=== PATIENT | male | born 1975 | race Caucasian/White ===

== ENCOUNTER 2018-06-08 05:55 | Inpatient (IN) | payer OTHER ==
[2018-06-07 14:31] VITALS: BMI 43.5
[~2018-06-08 05:55] MED LIST: oxyCODONE HCL 10 MG SUSTAINED ACTING TABLET PO ONE
[2018-06-08] MEDS ORDERED: oxyCODONE HCL 10 MG SUSTAINED ACTING TABLET ONE (06:23)
[2018-06-08] MEDS ORDERED: MIDAZOLAM HCL 2 MG/2 ML SINGLE DOSE VIAL ONE ×5 (07:03→10:11)
[2018-06-08] MEDS ORDERED: BUPIVACAINE HCL/PF 0.5% (5MG/ML) 10 ML VIAL ONE (07:04)
[2018-06-08] MEDS ORDERED: BUPIVACAINE HCL/PF (5 MG/ML) 30 ML VIAL IJ ONE (07:20)
[2018-06-08] MEDS ORDERED: BUPIVACAINE LIPOSOME/PF (EXPAREL) 266 MG/20 ML VIAL ONE (07:20)
[2018-06-08] MEDS ORDERED: LIDOCAINE 1%/EPI 1:100000 (20 ML MULTI DOSE VIAL) ONE (07:21)
[2018-06-08] MEDS ORDERED: THROMBIN (RECOMBINANT) 5,000 UNIT VIAL TP ONE (07:21)
--- NOTE | 2018-06-08 07:52 | HP ---
History & Physical Update - History History: No Change - Physical Physical: No Change - Assessment Assessment: No Change - Plan Plan: No Change
[2018-06-08] MEDS ORDERED: ceFAZolin SODIUM 1 GM VIAL ONE (08:52)
[2018-06-08] MEDS ORDERED: THROMBIN (BOVINE) 5,000 UNIT VIAL TP ONE (10:00)
[2018-06-08] MEDS ORDERED: GELATIN, ABSORBABLE 100 EACH SPONGE TP ONE (10:00)
[2018-06-08] MEDS ORDERED: ONDANSETRON 4 MG/2 ML VIAL ONE (10:17)
[2018-06-08] MEDS ORDERED: KETAMINE HCL 200 MG/20 ML VIAL ONE (10:43)
[2018-06-08] MEDS ORDERED: oxyCODONE HCL 5 MG TABLET PO PRN (11:16)
[2018-06-08] MEDS ORDERED: ONDANSETRON 4 MG/2 ML VIAL IVPUSH PRN (11:16)
[2018-06-08] MEDS ORDERED: ACETAMINOPHEN 1000 MG/100 ML VIAL (NON FORMULARY) IVPB ONE (11:20)
--- NOTE | 2018-06-08 11:27 | OP ---
Operative Note - Note: Operative Date: 06/08/18 Pre-Operative Diagnosis: Lumbar spondylolisthesis Operation: posterior lumbar decompression, instrumentation, fusion. Transforaminal interbody lumbar fusion of L5-S1 with allograft and neurmonitoring Surgeon: Manolo Azevedo Superintendent Horticulture: Ivy Luciano Anesthesiologist/EMERGENCY GENERATOR MECHANIC: Los Lu Anesthesia: Spinal Estimated Blood Loss (mls): 30 Fluid Volume Replaced (mls): 1,300 Operative Report Dictated: Yes
[2018-06-08] MEDS ORDERED: LACTATED RINGERS SOLUTION 1,000 ML IV SCH ×2 (11:30)
--- NOTE | 2018-06-08 11:38 | SURG ---
Surgery Forge Shop Machine Repairer Note Forge Shop Machine Repairer: Ivy Luciano PA-C Date of Service: 06/08/18 Diagnosis: Lumbar spondylolisthesis Procedure: posterior lumbar decompression, instrumentation, fusion. Transforaminal interbody lumbar fusion of L5-S1 with allograft and neurmonitoring I was present for the entirety of the operative procedure. For further detail, please refer to operative report. Visit type - Case Type Case Type: Scheduled - Emergency Emergency Visit: No - New patient This patient is new to me today: Yes Date on this admission: 06/08/18
[2018-06-08 12:43] VITALS: TEMP 98.1
[2018-06-08] MEDS ORDERED: diazePAM 2 MG TABLET PO SCH (13:00)
[2018-06-08] MEDS ORDERED: diazePAM 2 MG TABLET ONE (13:06)
--- NOTE | 2018-06-08 13:15 | OP ---
DATE OF OPERATION: 06/08/2018 PREOPERATIVE DIAGNOSIS: 1. Spinal stenosis at L5-S1. 2. Spondylolisthesis at L5-S1. POSTOPERATIVE DIAGNOSIS: 1. Spinal stenosis at L5-S1. 2. Spondylolisthesis at L5-S1. PROCEDURE PERFORMED: 1. Transforaminal lumbar interbody infusion, L5-S1. 2. Placement of instrumentation. 3. Placement of interbody cage. STRADDLE BUG DRIVER: EZEQUIEL Borges ESTIMATED BLOOD LOSS: 50 mL. INTRAVENOUS FLUID: Per Anesthesia. ANESTHESIA: Spinal/thoracolumbar interbody plane block (TLIP). COMPLICATIONS: None. DISPOSITION: Patient brought to the PACU in stable condition. INDICATIONS FOR SURGERY: The patient is a 43-year-old gentleman who has been suffering from pain from his back down his legs for many years. X-rays and MRI were completed which showed that he had spinal stenosis at L5-S1 secondary to spondylolisthesis. He had gone through an exhaustive course of treatment for this which included medications, physical therapy as well as injections. Unfortunately, his pain continued to persistent despite all this. At this point risks, benefits and alternatives were discussed and the patient consented to surgery. DESCRIPTION OF PROCEDURE: The patient was brought to the operating room by Anesthesia. After appropriate patient identification was performed, spinal anesthesia was given. A TLIP block was also given. The patient was able to position himself prone onto the OR table with all areas of bony prominences well-padded at this time. The C-Arm was brought in. The L5-S1 pedicles were marked out. His back was prepped and draped in a sterile manner. At this point a timeout was completed. An incision was made bilaterally over the L5-S1 pedicles. Dissection was carried down to the fascia. The fascia was then split open at this time. Under C-Arm guidance, trocars were advanced into both the L5 and S1 pedicles. The trocar wire was inserted. Over the wire a tap was performed and screws inserted. On the right-hand side, retractor blades were set up to expose the L5-S1 facet joint. The facet joint was removed. The disk was entered using a series of pituitaries, Kerrisons and curets. The diskectomy was completed. The endplates were decorticated at this time. Bone graft was placed in, the cage filled, bone graft was placed in. Tulip heads were placed over the screws. The curly was measured and placed in. Caps and compression were applied on the left-hand side. A curly was measured and placed and caps and compression were applied. All instrumentation was removed. AP and lateral x-rays confirmed the instrumentation to be in good position. Final tightening was performed. The fascia was closed with a number 1 Vicryl suture. Subcutaneous tissue was closed with 2-0 Vicryl sutures. Skin was closed with 3-0 Monocryl suture. Dermabond was applied. Steri-Strips were applied. Sterile dressing was applied. Patient was placed supine on the OR bed and brought to the PACU in stable condition. Cesar SANCHEZ/[id number]
[2018-06-08] MEDS: oxyCODONE HCL 5 MG TABLET PO PRN ×2 (14:20→18:00)
[2018-06-08] MEDS ORDERED: oxyCODONE HCL 5 MG TABLET ONE ×2 (14:21→18:02)
[2018-06-08] MEDS ORDERED: CEFAZOLIN 1 GM/D5W 1 GM/50 ML BAG ONE (15:36)
[2018-06-08] MEDS ORDERED: CEFAZOLIN 1 GM/D5W 1 GM/50 ML BAG IVPB SCH (16:00)
[2018-06-08] MEDS ORDERED: ACETAMINOPHEN 325 MG TABLET (FP) PO SCH (18:00)
[2018-06-08 19:07] VITALS: PULSE 72
[2018-06-08 19:15] VITALS: BP 129/80
== END 2018-06-08 18:30 | disposition home or self-care (01) | DRG 455 ==
LOC: FM/S 05:55
PROVIDERS: ADMIT Orthopaedic Surgery Orthopaedic Surgery of the Spine; ATTEND Orthopaedic Surgery Orthopaedic Surgery of the Spine
PROC: 0SG3071 Fusion of Lumbosacral Joint with Autologous Tissue Substitute, Posterior Approach, Posterior Column, Open Approach (ICD-10-PCS; 2018-06-08)
PROC: 4A11X4G Monitoring of Peripheral Nervous Electrical Activity, Intraoperative, External Approach (ICD-10-PCS; 2018-06-08)
PROC: 0SG30AJ Fusion of Lumbosacral Joint with Interbody Fusion Device, Posterior Approach, Anterior Column, Open Approach (ICD-10-PCS; principal; 2018-06-08 09:16)
DX: M48.07 Spinal stenosis, lumbosacral region (principal); M43.16 Spondylolisthesis, lumbar region
CPT/HCPCS: 72100-TC-FY; 76000-TC-FY; 94760; J0131